=== PATIENT | male | born 2000 | race Hispanic/Latino ===

== ENCOUNTER 2022-06-06 19:39 | Emergency (ER) | payer SELFPAY ==
[2022-06-06 21:01] VITALS: BP 149/81
[2022-06-06 21:15] VITALS: BP 139/81
[2022-06-06 21:31] VITALS: BP 132/86
[2022-06-06 21:45] VITALS: BP 143/85
[2022-06-06] MEDS ORDERED: AMOX/K CLAV875 M1 PO (21:55)
[2022-06-06 22:01] VITALS: BP 131/79
== END 2022-06-06 22:16 | disposition home or self-care (01) | DRG 153 ==
LOC: ED 19:39
DX: J32.9 Chronic sinusitis, unspecified (principal); Z20.822 Contact with and (suspected) exposure to COVID-19